=== PATIENT | female | born 1955 | race Hispanic/Latino ===

== ENCOUNTER 2024-02-25 08:32 | Day surgery (SDC) | payer OTHER, MEDICARE ==
[2024-02-22 14:39] LABS: Absolute Basophils 0.1 K/uL (0-0.5); Absolute Eosinophils 0.1 K/uL (0-0.5); Absolute Lymphocytes (CBC) 1.4 K/uL (0.7-4.9); Absolute Monocytes 0.4 K/uL (0.1-1.3); Absolute Neutrophil 4.7 K/uL (1.8-8.0); Eosinophils % 1.3 % (0-4.4); Hematocrit 42.1 % (36.0-45.0); Hemoglobin 13.9 g/dL (12.0-15.0); Lymphocytes % 21.3 % (15.3-44.8); MCH 28.9 pg (27.0-35.0); MCV 87.5 fL (80-100); MPV 8.6 fL (7.6-11.3); Monocytes % 6.1 % (3.3-12.3); Neutrophils % 70.3 % (41.7-73.7); Platelets 247 thou/uL (152-406); RBC Red Blood Cell Count 4.81 M/uL (3.86-4.86); Red Cell Distribution Width 13.1 % (12.1-15.2)
[2024-02-22 14:48] LABS: Anion Gap 10.8 mEq/L (5.0-15.0)
[2024-02-22 15:02] LABS: Potassium 3.8 mEq/L (3.5-5.1)
--- NOTE | 2024-02-23 16:59 | EKG ---
Test Date: 2024-02-22 Test Time: 14:20:46 [employer] Program Specialist: FEI MEASUREMENT RESULTS: Intervals: Rate: 73 SD: 124 QRSD: 82 QT: 392 QTc: 431 [place]: P: 53 SD: 124 QRS: 89 T: 63 INTERPRETIVE STATEMENTS: Normal sinus rhythm Normal ECG Compared to ECG 06/20/2015 13:00:31 Sinus arrhythmia no longer present Electronically Signed On 02-23-24 16:56:56 CDT by Lalo Reyes
[2024-02-25] MEDS: Ringers Lactate 1,000 ML IV ONE (09:10)
[2024-02-25 09:21] VITALS: O2SAT 100
[2024-02-25] MEDS ORDERED: LIDOCAINE 1% MPF 5 ML VIAL ONE (10:48)
[2024-02-25] MEDS ORDERED: propofoL 200 MG/20 ML VIAL IV ONE (10:48)
[2024-02-25 12:06] VITALS: BP 91/62; TEMP 97
== END 2024-02-25 12:10 | disposition home or self-care (01) ==
LOC: OR 08:32
PROVIDERS: ATTEND Surgery
PROC: 0DBN8ZX Excision of Sigmoid Colon, Via Natural or Artificial Opening Endoscopic, Diagnostic (ICD-10-PCS; principal; 2024-02-25 11:45)
DX: Z12.11 Encounter for screening for malignant neoplasm of colon (principal); K52.9 Noninfective gastroenteritis and colitis, unspecified; K64.8 Other hemorrhoids
CPT/HCPCS: 45380; 93005; 85025; 80048; 36415; 88305; J2704; J2001; J7120